=== PATIENT | female | born 1995 | race Caucasian/White ===

== ENCOUNTER 2016-12-06 21:35 | Emergency (ER) | payer SELFPAY ==
[2016-12-06 21:35] VITALS: BMI 29.5
[2016-12-06 22:18] VITALS: O2SAT 100
[2016-12-06 22:50] VITALS: BP 119/77; PULSE 79; RESP 17; TEMP 97.7
--- NOTE | 2016-12-06 22:50 | C.PDOC ---
History Of Present Illness 21 yo female come in for evaluation of B/L hands 4th fingers itchy rash developed after had ring one. Pt sts, "noted some redness with itching and removed ring but still itch". Pt sts, has and want to make sure disease is not contagious. Otherwise, pt denies fever, chills, recent illness, sore throat, throat pain or swelling, cough , wheezing, or any other active complaints. pt denies recent travel or known sick contact. Ambulate to Ed for evaluation, not in any apparent distress. Time Seen by Provider: 12/06/16 22:15 Chief Complaint (Nursing): Abnormal Skin Integrity History Per: Patient Onset/Duration Of Symptoms: Gradual Past Medical History Reviewed: Historical Data, Nursing Documentation, Vital Signs Vital Signs: Last Vital Signs Temp 97.7 F 12/06/16 22:49 Pulse 79 12/06/16 22:49 Resp 17 12/06/16 22:49 BP 119/77 12/06/16 22:49 Pulse Ox 100 12/06/16 22:50 - Medical History PMH: No Chronic Diseases - [facility] Procedures EXTRACTION OF POC, LOW CERVICAL, OPEN APPROACH (07/16/16) Family History: States: No Known Family Hx - Social History Hx Tobacco Use: No Hx Alcohol Use: No Hx Substance Use: No - Immunization History Hx Tetanus Toxoid Vaccination: No Hx Influenza Vaccination: No Hx Pneumococcal Vaccination: No Review Of Systems Except As Marked, All Systems Reviewed And Found Negative. Constitutional: Negative for: Fever, Chills ENT: Negative for: Mouth Swelling, Throat Swelling Cardiovascular: Negative for: Chest Pain, Palpitations Respiratory: Negative for: Cough, Shortness of Breath, Wheezing Gastrointestinal: Negative for: Nausea, Vomiting Musculoskeletal: Negative for: Neck Pain Skin: Positive for: Rash Neurological: Negative for: Weakness, Numbness, Altered Mental Status, Headache , Dizziness Physical Exam - Physical Exam Skin: Normal Color, Warm, Rash (MILD ERYTHEMA OVER DORSAL ASPECT B/L DISTAL 4TH PHALANX. NO EDEMA, NO PROXIMAL STREAKING.) ED Course And Treatment O2 Sat by Pulse Oximetry: 100 Pulse Ox Interpretation: Normal Progress Note: On re-evaluation , pt is afebrile, hemodynamicaly stable. Non- toxic, tolerate Po well in ED. PusleOx 100% RA. ENT: no acute findings. uvula midline, no edema. Lungs: CTA B/L, BS equal B/L. Skin: exam c/w slight erythematous pruritic rash likely secondary to contact dermatitis. Pt advised. ref. to f/u with PMD, Derm in 2-3 days for re-eavl. return if any new changes. Disposition Counseled Patient/Family Regarding: Diagnosis, Need For Followup - Disposition Referrals: [facility] [Outside] Disposition: HOME/ ROUTINE Disposition Time: 22:10 Condition: STABLE Additional Instructions: AVOID CONTACT WITH POSSIBLE KNOWN ALLERGEN HYDROCORTISON CREAM OTC APPLY TO RASH FOLLOW UP WITH PMD AND DERMATOLOGY IN 2-3 DAYS FOR RE-EVALUATION. RETURN TO ED IF ANY WORSENING OR NEW CHANGES. Instructions: Contact Dermatitis (ED) - Clinical Impression Clinical Impression: Contact dermatitis
== END 2016-12-06 22:56 | disposition home or self-care (01) ==
LOC: C.ER 21:35
DX: L25.9 Unspecified contact dermatitis, unspecified cause (principal)